=== PATIENT | male | born 1990 | race African-American/Black ===

== ENCOUNTER 2018-03-25 03:57 | Emergency (ER) | payer SELFPAY ==
[~2018-03-25] VITALS: Ht 180.3 cm; Wt 83.5 kg
[2018-03-25] MEDS ORDERED: SODIUM CHLORIDE 0.9% 1,000 ML IVB ONE (05:24)
[2018-03-25] MEDS ORDERED: MORPHINE SULFATE 4 MG/ML SYR/VIAL IV ONE (05:30)
[2018-03-25] MEDS ORDERED: ONDANSETRON HCL 4 MG/2 ML VIAL IV ONE (05:30)
[2018-03-25] MEDS ORDERED: IOHEXOL 300 MG/ML 100ML BOTTLE IJ ONE (05:30)
[2018-03-25 05:54] LABS: Basophils # (auto) 0 uL; Basophils % (auto) 0.8 % (0.0-2.0); Eosinophils # (auto) 0 uL; Eosinophils % (auto) 0.5 % (0.0-7.0); Hematocrit 47.3 % (41.0-53.0); Hemoglobin 15.9 g/dL (13.5-17.5); Lymphocytes # (auto) 1.4 uL; Lymphocytes % (auto) 34.6 % (10.0-50.0); Mean Corpuscular Hemoglobin 30.7 pg (28.0-32.0); Mean Corpuscular Hgb Conc. 33.6 g/dL (32.0-36.0); Mean Corpuscular Volume 91.2 fL (80.0-100.0); Monocytes # (auto) 0.4 uL; Monocytes % (auto) 9.7 % (0.0-12.0); Neutrophils # (auto) 2.2 uL; Neutrophils % (auto) 54.4 % (37.0-80.0); Nucleated Red Blood Cells % 0.1 %; Platelet Count (auto) 328 10^3/uL (140-450); Red Blood Cells 5.19 10^6/uL (4.5-5.90); Red Cell Distribution Width 13.6 % (11.8-14.3); White Blood Cell 4.1 10^3/uL (4.4-10.8)
[2018-03-25 06:04] VITALS: BP 134/82
[2018-03-25 06:10] LABS: INR 0.96 (0.9-1.15); Partial Thromboplastin Time 26.6 sec (23.78-33.04); Prothrombin Time 10.3 sec (9.27-12.13)
[2018-03-25 06:12] LABS: Albumin 3.6 g/dL (3.4-5.0); BUN/Creatinine Ratio 11.3; Calcium 8.2 mg/dL (8.5-10.1)
[2018-03-25 06:15] LABS: Bilirubin, Total 1.4 mg/dL (0.2-1.0); Total Protein 7.2 g/dL (6.4-8.2)
[2018-03-25 07:30] LABS: Lactic Acid w/Reflex 3.2 mmol/L (0.4-2.0)
== END 2018-03-25 08:08 | disposition home or self-care (01) ==
LOC: ER 04:04
DX: R10.9 Unspecified abdominal pain (principal); R19.7 Diarrhea, unspecified; R11.2 Nausea with vomiting, unspecified
CPT/HCPCS: 36415; 74177; 80053; 82150; 83605; 83690; 83735; 85025; 85610; 85730; 87040; 96361; 96374; 96375; 99284; J2270; J2405; J7030; Q9967

== ENCOUNTER 2019-09-19 22:28 | Emergency (ER) | payer SELFPAY ==
[~2019-09-19] VITALS: Ht 180.3 cm; Wt 87.5 kg
[2019-09-19 23:17] LABS: Basophils # (auto) 0 10 ^3/uL (0-0.2); Basophils % (auto) 0.5 % (0.0-2.0); Eosinophils # (auto) 0.1 10 ^3/uL (0-0.8); Eosinophils % (auto) 1.2 % (0.0-7.0); Hematocrit 46.8 % (41.0-53.0); Lymphocytes # (auto) 2.2 10 ^3/uL (0.4-5.4); Mean Corpuscular Hemoglobin 30.5 pg (28.0-32.0); Mean Corpuscular Hgb Conc. 34.2 g/dL (32.0-36.0); Mean Corpuscular Volume 89.1 fL (80.0-100.0); Monocytes # (auto) 0.7 10 ^3/uL (0-1.3); Monocytes % (auto) 11.1 % (0.0-12.0); Neutrophils # (auto) 3.7 10 ^3/uL (1.6-8.6); Neutrophils % (auto) 55.2 % (37.0-80.0); Nucleated Red Blood Cells % 0.1 %; Platelet Count (auto) 340 10^3/uL (140-450); Red Blood Cells 5.26 10^6/uL (4.5-5.90); Red Cell Distribution Width 13.4 % (11.8-14.3); White Blood Cell 6.7 10^3/uL (4.4-10.8)
[2019-09-19 23:27] LABS: INR 0.96 (0.9-1.15); Partial Thromboplastin Time 26.2 sec (23.64-32.05)
[2019-09-19 23:38] LABS: Alanine Aminotransferase 45 U/L (16-61); Anion Gap 8 (5-15); Aspartate Aminotransferase 28 U/L (15-37); BUN/Creatinine Ratio 18.7; Blood Urea Nitrogen 23 mg/dL (7-18); Calcium 9.7 mg/dL (8.5-10.1); Carbon Dioxide 28 mmol/L (21-32); Chloride 101 mmol/L (98-107); GFR African American 89 mL/min; GFR Non-African American 73 mL/min; Glucose 98 mg/dL (74-106); Magnesium 2.2 mg/dL (1.6-2.6); Potassium 3.6 mmol/L (3.5-5.1); Sodium 137 mmol/L (136-145)
[2019-09-19 23:43] LABS: Alkaline Phosphatase 35 U/L (45-117); Bilirubin, Total 0.6 mg/dL (0.2-1.0); Total Protein 8.1 g/dL (6.4-8.2)
[2019-09-19] MEDS ORDERED: FAMOTIDINE (10MG/ML) 2ML VL IV ONE (23:45)
[2019-09-19] MEDS ORDERED: ONDANSETRON HCL 4 MG/2 ML VIAL IV ONE (23:45)
[2019-09-20] MEDS ORDERED: FOLIC ACID 1 MG, MULTIPLE VITAMIN 10 ML, MAGNESIUM SULF SDV 50% 8 MEQ, THIAMINE INJ 100... INJ ONE ×5
[2019-09-20] MEDS ORDERED: MVI in SODIUM CHLORIDE 0.9% 1,010 ML ONE (00:52)
[2019-09-20 02:45] VITALS: BP 128/72
== END 2019-09-20 03:02 | disposition home or self-care (01) ==
LOC: ER 22:29
DX: R07.89 Other chest pain (principal); K29.20 Alcoholic gastritis without bleeding; I10 Essential (primary) hypertension; F10.10 Alcohol abuse, uncomplicated
CPT/HCPCS: 36415; 71045; 80053; 80320; 83735; 83880; 84484; 85025; 85610; 85730; 93005; 96365; 96366; 96375; 99285; J2405; J3411; J3475; J3490

== ENCOUNTER 2022-06-12 11:13 | Emergency (ER) | payer BC ==
[~2022-06-12] VITALS: Ht 180.3 cm; Wt 104.0 kg
[2022-06-12] MEDS ORDERED: KETOROLAC TROMETH 60MG/2ML VIAL IM ONE (13:30)
[2022-06-12 13:54] VITALS: BP 154/100
[2022-06-12 14:15] LABS: Urine Bacteria NONE SEEN /hpf (None Seen); Urine Blood TRACE /uL (Negative); Urine Specific Gravity 1.027 (1.001-1.035); Urine WBC 1 /hpf (0 - 3)
[2022-06-12] MEDS ORDERED: IBUP800T26 PO (15:00)
== END 2022-06-12 15:01 | disposition home or self-care (01) ==
LOC: ER 11:13 → MERGE 11:13 → ER 15:01
DX: S29.012A Strain of muscle and tendon of back wall of thorax, initial encounter (principal); X58.XXXA Exposure to other specified factors, initial encounter; Y93.89 Activity, other specified; Y92.89 Other specified places as the place of occurrence of the external cause; Y99.8 Other external cause status
CPT/HCPCS: 71101; 81001; 96372; 99284; J1885